=== PATIENT | female | born 2000 | race Hispanic/Latino ===

== ENCOUNTER 2019-09-29 09:32 | Outpatient (CLI) | payer MEDICAID ==
--- NOTE | 2019-09-29 09:58 | ULT ---
Exam: Transabdominal pelvic ultrasound HISTORY:Pelvic pain. Evaluate IUD position. COMPARISON: None TECHNIQUE: Transabdominal imaging of the pelvis is performed. Ovaries are interrogated with grayscale , color flow, Doppler imaging and spectral wave form analysis FINDINGS: Uterus: No myometrial masses. Uterus measurin.4 x 4.4 x 4.3 cm. Endometrium: Within the expected region of the endometrium, there is echogenic focus compatible with intrauterine device. Limited evaluation the endometrium diameter due to the presence of an intrauterine device. Free fluid: None Right ovary: Normal echotexture Right ovary measurement: 3.5 x 2.9 x 3.1 cm Left ovary: Normal echotexture. Left ovary measurements: 3.4 x 2.4 x 2.4 cm Ovarian Doppler: There is vascular flow to the left and right ovary. IMPRESSION: Echogenic focus in the expected region of the endometrium, compatible with a intrauterine device.
== END 2019-09-29 09:33 | disposition home or self-care (01) ==
LOC: BICULT 09:32
PROVIDERS: ATTEND Nurse Practitioner Women's Health
DX: R10.2 Pelvic and perineal pain (principal); Z97.5 Presence of (intrauterine) contraceptive device
CPT/HCPCS: 76856; 93976